=== PATIENT | female | born 1990 | race Caucasian/White ===

== ENCOUNTER 2020-06-05 18:03 | Emergency (ER) | payer OTHER ==
[~2020-06-05] VITALS: Ht 165.1 cm; Wt 84.1 kg
--- NOTE | 2020-06-05 21:20 | NUR ---
took a long time to move her from w/c to the gurney. Very guarded and timely movements slow and miticulous. Lots of pain.
--- NOTE | 2020-06-05 22:17 | NUR ---
pt opted to get up to BS commode and void in a hat I gave her 2 sani wipes, instructed her on what I needed. Spouse in to help her.
--- NOTE | 2020-06-05 23:02 | NUR ---
[facility] RECORDS RECV FROM LAST ER VISIT
[2020-06-05 23:16] LABS: CLARITY,URINE SLIGHTLY CLOUDY (Clear); COLOR,URINE YELLOW (Yellow); GLUCOSE, URINE NEGATIVE (Neg); KETONES,URINE NEGATIVE (Neg); LEUKOCYTE ESTERASE ,URINE NEGATIVE (Neg); NITRITES, URINE NEGATIVE (Neg); OCCULT BLOOD,URINE NEGATIVE (Neg); PROTEIN,URINE NEGATIVE (Neg); UROBILINOGEN,URINE 0.2 E.U/dL (0.2-1.0)
[2020-06-05 23:22] LABS: UA COLLECTION TYPE CLN CATCH MIDSTREAM
[2020-06-05 23:24] LABS: HCG SERUM QL NEGATIVE
--- NOTE | 2020-06-05 23:25 | NUR ---
repositioned pt in her bed.
[2020-06-05 23:26] LABS: BACTERIA,URINE FEW /HPF (Neg); RBC,URINE 0-2 /HPF (0-2); SQUAMOUS EPITHELIAL CELL,UR MANY /LPF (FEW); WBC,URINE 0-4 /HPF (0-4)
[2020-06-05 23:27] LABS: MUCUS STRANDS FEW /LPF (Neg)
[2020-06-05] MEDS ORDERED: dexamethasone sod phosphate 10mg/ml inj IM STA (23:28)
[2020-06-05] MEDS ORDERED: diazepam 5mg tablet PO ONE (23:30)
[2020-06-05] MEDS ORDERED: HYDROcodone/acetaminophen 5mg/325mg tablet PO ONE (23:55)
[2020-06-05] MEDS ORDERED: HYDR-3965 PO (23:56)
[2020-06-05] MEDS ORDERED: ONDA4TAB6 PO (23:56)
[2020-06-05] MEDS ORDERED: IBUP-1984 PO (23:56)
[2020-06-06 00:54] VITALS: BP 113/73
== END 2020-06-06 00:56 | disposition home or self-care (01) ==
LOC: ER 18:04
DX: M54.41 Lumbago with sciatica, right side (principal); M25.551 Pain in right hip; F17.200 Nicotine dependence, unspecified, uncomplicated; Z88.6 Allergy status to analgesic agent; Z79.899 Other long term (current) drug therapy
CPT/HCPCS: 36415; 72128; 72131; 81001; 84703; 96372; 99285; J1100